=== PATIENT | female | born 1980 | race Caucasian/White ===

== ENCOUNTER → 2016-11-26 | Outpatient (CLI) | payer OTHER ==
[~2016-11-26] MED LIST: ALBUAER19 INH; ONDA4TAB10 SL; POTA20TA13 PO; PRENTAB26 PO; PRLSR20 PO; ZNTT/150 PO
== END | disposition home or self-care (01) ==
LOC: C.PATHSPEC 17:26
PROVIDERS: ATTEND Plastic Surgery
DX: L72.0 Epidermal cyst (principal)

== ENCOUNTER → 2016-12-20 | Outpatient (CLI) | payer OTHER | END | disposition home or self-care (01) | LOC: C.LABSPEC 16:07 | PROVIDERS: ATTEND Obstetrics & Gynecology | DX: O09.523 Supervision of elderly multigravida, third trimester (principal); Z3A.00 Weeks of gestation of pregnancy not specified ==

== ENCOUNTER 2017-01-08 01:31 | Outpatient (CLI) | payer OTHER ==
[~2017-01-08] VITALS: Ht 175.3 cm; Wt 100.0 kg
[~2017-01-08 01:31] MED LIST changes: -ONDA4TAB10 SL; -PRENTAB26 PO; -PRLSR20 PO
[2017-01-08 02:42] VITALS: Ht 175.3 cm; Wt 100.0 kg
== END 2017-01-08 02:37 | disposition home or self-care (01) ==
LOC: C.OPB 01:31 → C.LD 01:31 → C.OPB 02:37
PROVIDERS: ATTEND Obstetrics & Gynecology
DX: O36.8130 Decreased fetal movements, third trimester, not applicable or unspecified (principal); O62.9 Abnormality of forces of labor, unspecified; Z3A.39 39 weeks gestation of pregnancy

== ENCOUNTER 2017-01-14 01:07 | Inpatient (IN) | payer OTHER ==
[~2017-01-14] VITALS: Ht 175.3 cm; Wt 102.3 kg
[2017-01-14] MEDS ORDERED: PRLSR20 PO (01:54)
[2017-01-14 02:00] VITALS: Ht 175.3 cm; Wt 102.3 kg
[2017-01-14] MEDS ORDERED: LACTATED RINGER'S 1000ML 1,000 ML IV SCH ×2 (03:10→03:45)
[2017-01-14] MEDS ORDERED: LACTATED RINGER'S 1000ML 1,000 ML IV PRN (03:10)
[2017-01-14] MEDS ORDERED: LANOLIN OINT EXT PRN ×2 (03:45)
[2017-01-14] MEDS ORDERED: OXYTOCIN INJ 10 UNITS/ML VIAL IM ONE (03:45)
[2017-01-14] MEDS ORDERED: HYDROCORTISONE ACETATE 25 MG SUPP PR PRN (03:45)
[2017-01-14] MEDS ORDERED: BENZOCAINE 20% AER SPR 82.5 GM CAN EXT PRN (03:45)
[2017-01-14] MEDS ORDERED: DIPHTHERIA/TETANUS/PERTUSSIS 0.5 ML SYR/VIAL IM. ONE (03:45)
[2017-01-14] MEDS ORDERED: IBUPROFEN 600 MG TAB PO PRN (03:45)
[2017-01-14] MEDS ORDERED: ACETAMINOPHEN 325 MG TAB PO PRN (03:45)
[2017-01-14] MEDS ORDERED: SUPERCREAM 0.870 % 15GM JAR EXT PRN (03:45)
[2017-01-14] MEDS ORDERED: ACETAMINOPHEN/CODEINE 300/30MG TAB PO PRN ×2 (03:45)
--- NOTE | 2017-01-14 05:01 | DELIVERY SUMMARY ---
DATE OF OPERATION: 01/14/2017 CHIEF COMPLAINT ON ADMISSION: Contractions. HISTORY OF PRESENT ILLNESS: A 36-year-old G3, P1-0-1-1, who presented at 40-1/7 weeks gestational age, complaining of regular painful contractions. On arrival, the patient was checked by nursing and found to be category 1 heart sounds with an active TOCO and a cervix that was 4 cm. Patient's contractions palpated mild and the patient was offered to ambulate and be re-examined. On recheck, the patient was found to be 7 cm dilated. She had become significantly more uncomfortable and was requesting epidural. Before an epidural could be provided, the spontaneous rupture of membranes occurred and the patient rapidly brought the head down to the introitus with a strong urge to push. Of note, there was also a deceleration at this time, bringing the heart rate down into the 90s. At that point, I was called to the patient's bedside and in the time it took me to walk down the burk, patient had begun actively pushing and was . I quickly prepped for delivery. Over the next pushing effort, she brought the head of the to delivery in the PAMELA position and with the next push the entire remainder of the baby delivered rapidly. Of note, there was an occult cord prolapse with a loop of cord appearing above the 's right shoulder, which was the anterior shoulder, and delivering immediately after the head of the and before the shoulders did, which may explain the deceleration that occurred at the end stage of her labor. Once the infant delivered, it was placed on the maternal abdomen, the cord was doubly clamped and cut. The infant did make respiratory efforts and made movements with all four limbs immediately upon delivery. The placenta delivered spontaneously. On examination of the placenta, the cord appeared to have only 2 vessels. I asked the nurses attending to the baby in the warmer how many vessels they were seeing on the cord and they said they were seeing 2 vessels. I sectioned the cord to make a fresh cut to examine it closer to the placenta and once again, was only able to identify 2 vessels. We will send this placenta and cord for pathology examination. The cervix vagina and perineum were examined and found to be free of any defects requiring repair. Ten units of intramuscular Pitocin was given and the fundus was firm and well contracted and lochia was minimal immediately after delivery. Review of the patient's record reveals that this has been complicated by advanced maternal age and significant smoking at 3/4 of a pack per day. ALLERGIES: The patient has no known allergies. MEDICATIONS: Her medications include omeprazole, Ventolin and vitamins. OBSTETRIC HISTORY: Her obstetric history is notable for a miscarriage in 2014 and 1 spontaneous vaginal delivery in 2011 of a normal male. MEDICAL HISTORY: Her medical history is notable for migraines, small airway obstructive disease and history of abnormal Paps as well as varicella. SURGICAL HISTORY: Surgical history includes a D\T\E for the miscarriage, cholecystectomy and an umbilical herniorrhaphy. SOCIAL HISTORY: She is a single female, smoking 3/4 of a pack per day during , down from 1 pack per day pre . She denies use of alcohol or recreational drugs. LABS AND IMAGING: Her labs and imaging were reviewed. She is noted to be type O positive, rubella immune. She did pass her glucose screenings and of note, her anatomy scan does not appear to have identified the 2-vessel cord. She was group B strep negative. PLAN: At this time, the patient will be admitted for standard care. I attest to the content of the Intraoperative Record and any orders documented therein. Any exceptio ns are noted below.
[2017-01-14 05:58] VITALS: BP 120/63; PULSE 73; TEMP 36.6
[2017-01-14 07:15] VITALS: BP 115/72; PULSE 77; TEMP 36.8; O2SAT 98
[2017-01-14 07:36] LABS: HEMATOCRIT 37.1 % (37-47); MEAN CELL VOLUME 89.8 fL (80-100); MEAN CORPUSCULAR HGB CONC 35.6 g/dl (32-36); MEAN PLATELET VOLUME 10.3 fL (7.4-10.4); PLATELET COUNT 217 K/uL (130-400); RED BLOOD COUNT 4.13 M/uL (4.2-5.4); WHITE BLOOD COUNT 25.98 K/uL (4.8-10.8)
--- NOTE | 2017-01-14 07:56 | Progress Note ---
Subjective Jan 14, 2017. Subjective conversation w/ patient Ambulation: ambulating normally Voiding: no voiding problems Passing Gas: Yes Diet Tolerance: Regular Diet Lochia: Small Feeding Type: Bottle Feeding Comment: Sitting up in bed, looks well, claims to have no pain. At sandwich, voided, no gas/BM yet, lochia small per patient. Bottle feeding. Will want to leave hospital at 24hr after delivery. Review of Systems Constitutional: No fever Respiratory: No cough Cardiac: No chest pain Abdomen: No nausea, No vomiting Objective Vital Signs Date Time Temp Pulse Resp B/P Pulse Ox O2 Delivery O2 Flow Rate FiO2 01/14/17 05:58 36.6 73 20 120/63 Room Air 01/14/17 05:55 Room Air Physical Exam General Appearance: WELL-APPEARING, NO APPARENT DISTRESS Respiratory/Chest: no respiratory distress, no accessory muscle use Cardiovascular: no edema Abdomen: non tender, soft Fundus: Firm Extremities: no calf tenderness Laboratory Results Last 24 Hours Test 01/14/17 07:26 White Blood Count 25.98 K/uL Red Blood Count 4.13 M/uL Hemoglobin 13.2 g/dL Hematocrit 37.1 % Mean Corpuscular Volume 89.8 fL Mean Corpuscular Hemoglobin 32.0 pg Mean Corpuscular Hemoglobin Concent 35.6 g/dl RDW Standard Deviation 40.9 fL RDW Coefficient of Variation 12.5 % Platelet Count 217 K/uL Mean Platelet Volume 10.3 fL Assessment and Plan Problem List Medical Problems: (1) Leukocytosis Status: Acute (2) Vomiting Status: Acute Post- Day#: 0 Continue Routine Care: Delivered precipitously early this morning, no lacerations, doing very well already. Routine PP care.
[2017-01-14] MEDS: DOCUSATE SODIUM 100 MG CAP PO SCH ×2 (08:24→19:54)
[2017-01-14] MEDS: PRENATAL VITAMIN TAB PO SCH (08:24)
[2017-01-14 11:10] VITALS: BP 124/83; PULSE 85; TEMP 36.8; O2SAT 98
[2017-01-14 15:35] VITALS: BP 101/72; PULSE 64; TEMP 36.6
[2017-01-14 20:00] VITALS: BP 116/73; PULSE 75; TEMP 36.4
[2017-01-14 23:45] VITALS: BP 109/74; PULSE 66; TEMP 36.7
[2017-01-15] MEDS ORDERED: PRENTAB26 PO (06:53)
--- NOTE | 2017-01-15 06:55 | Discharge Instructions ---
Discharge Instructions Admission Reason for Admission: LABOR Discharge Discharge Diagnosis / Problem: Spontaneous Vaginal Delivery Discharge Goals Goal(s): Routine recovery after delivery Medications Continue Dispensed Medications: supercream, dermaplast, tucks, lansinoh Activity Recommendations Activity Limitations: per Instructions/Follow-up section . Instructions / Follow-Up Instructions / Follow-Up ACTIVITY RECOMMENDATIONS: * Gradual return to full activity over the next 2-3 weeks. * No lifting - nothing heavier than baby over the next 2-3 weeks. * Do not engage in vigorous exercise, sexual activity or sports until cleared by your physician. * Do not drive or operate any motorized equipment until cleared by your physician. * You may shower/bathe daily. MEDICATIONS: For discomfort or pain, you may use Acetaminophen (Tylenol), Ibuprofen (Advil), or Naproxen (Aleve) following the package directions. For constipation you may use Colace following the package directions. BREAST CARE: If you are not breast feeding: * Wear a supportive bra 24 hours a day for one to two weeks. * Avoid stimulating your breasts and nipples as much as possible during the first few weeks after delivery. * When taking a shower, have the warm water hit your back, not breasts. * When your breasts feel full, apply ice packs. Usually three to four times a day helps ease the discomfort. * Take a mild pain medication (Tylenol / Motrin) when you are uncomfortable. If breast feeding: * Use breast milk to lubricate nipples. Lansinoh cream may be used for sore nipples. You do not need to remove cream prior to breast feeding. If using a different brand of cream, check the label for directions regarding removal of cream prior to nursing. * Wear a supportive bra. * If having problems with breasts or breast feeding, call a managed security sales consultant or your health care provider. EPISIOTOMY CARE: After delivery, if you have an episiotomy (stitches), the following steps will ease discomfort and aid healing. * For the first 24 hours after delivery, place ice packs next to your episiotomy to help reduce swelling. * After the first 24 hour-period, sitz baths, either portable or in the tub, are suggested. A shower with a shower arm sprayed over the episiotomy may be comforting. * Sliva care should be done after each voiding and bowel movement. Squirt warm water from a plastic bottle over the perineum (region of the body between the anus and urinary opening) and pat dry. * Use Dermoplast to ease discomfort. Shake container. [place] directly over the episiotomy. Place a Tucks on a clean sanitary pad next to your episiotomy. SPECIAL CARE INSTRUCTIONS: When you are discharged from the hospital, it is important for you to follow the instructions listed below: * During the first week at home, you should be able to care for yourself and your baby. In addition, the usual light household activities are encouraged. * Limit your activities to the way you feel. Do not try to clean the house or move furniture. Be sensible. * If you actively engage in sports and have done so up until the time of your delivery, you may resume these activities as soon as you feel able. This may take up to one month or even longer. Use good judgment. * Continue to take your vitamins for at least six weeks after the of your baby. * Your diet need not be limited unless you were on a special diet before your delivery. Breast-feeding mothers need around 2500 calories per day and at least 64-80 ounces of fluid per day (8 to 10 glasses). * You should eat foods from the four major food groups. Crash diets or fad diets are to be avoided. Eating lean meats, fresh fruits and vegetables, low-fat dairy products, high fiber foods and a regular exercise program, will help you get back to your pre- weight without putting your health at risk. * Constipation is sometimes a problem after delivery. Take a mild laxative as needed. If breast feeding, Milk of Magnesia is acceptable to use. You may use a suppository or Fleets enema if no episiotomy. * A daily shower or tub bath is suggested. Be sure to thoroughly and gently dry the perineum. * A bloody vaginal discharge will usually continue until around four weeks post . A small amount of bleeding may continue for as long as six weeks. Vaginal discharge changes from the bright red bleeding after delivery to pink then brownish and finally yellowish-pink before becoming white and disappearing. * Bleeding may increase with activity. Your first period may come in 4-8 weeks. If you are breast feeding, your period may be delayed even longer. * [place] (sex) can begin whenever both you and your partner feel comfortable and do not have any form of genital infection. It is recommended that you wait at least six weeks for internal and external healing to occur. If you have questions, please talk to your health care practitioner. A condom should be used to prevent infection and . * Foreplay, gentle intercourse and lubrication is very important the first several times to prevent pain. A water-based lubricant such as K-Y jelly or Astroglide may be used. * If you have RH negative blood and your baby is RH positive, you will receive RHOGAM by injection prior to discharge. The nurse will give you a card to keep with you that has the date and place that you received RHOGAM after delivery. * During your care, you had a Rubella screen done to check for the presence of rubella antibodies in your blood. If your test was negative, you will receive a Rubella vaccine prior to discharge. This vaccine may cause a fever, soreness at the injection site and flu-like symptoms. If these symptoms persist, notify your health care practitioner. is not advised for one month after a Rubella vaccine. * Verbalizes understanding of car seat law as reviewed with patient nursing. * Car Seat hand-out given and reviewed with patient by nursing. * Shaken baby information reviewed with patient by nursing. Call you doctor if: * Heavy bleeding (saturating several pads an hour) or passing clots the size of your fist. * A fever >101 degrees F (38.3 degrees C) on two occasions four hours apart and /or chills. * Unusual pain in the pelvic or vaginal areas. * "Baby Blues" lasting longer than two weeks. If you have any questions or concerns, call your health care practitioner at . FOLLOW UP VISIT: * Please call the office at to schedule a 6 week examination. It is important you keep this appointment. It is important for you to make arrangements for either yearly or twice yearly check-ups thereafter. Current Hospital Diet Patient's current hospital diet: Regular OB Diet Discharge Diet Recommended Diet: Regular OB Diet Pending Studies Studies pending at discharge: no Medical Emergencies . Who to Call and When: Medical Emergencies: If at any time you feel your situation is an emergency, please call 911 immediately. . Non-Emergent Contact Non-Emergency issues call your: Primary Care Provider, Course Instructor . . "Provider Documentation" section prepared by Gregory Jeffries. VTE Core Measure Inpt VTE Proph given/why not?: Treatment not indicated
[2017-01-15 07:22] VITALS: BP 108/64; PULSE 68; TEMP 36.5; O2SAT 98
[2017-01-15 07:30] VITALS: O2SAT 98
[2017-01-15 07:40] LABS: HEMATOCRIT 35.6 % (37-47)
--- NOTE | 2017-01-15 07:43 | Progress Note ---
Subjective Jan 15, 2017. Subjective conversation w/ patient, physical exam Ambulation: ambulating normally Voiding: no voiding problems Passing Gas: Yes Diet Tolerance: Regular Diet Lochia: Small (still having some small clots) Feeding Type: Breast Feeding Review of Systems Constitutional: No chills, No fever Respiratory: No cough, No shortness of breath Cardiac: No chest pain, No palpitations Abdomen: No nausea, No pain, No vomiting Objective Vital Signs Date Time Temp Pulse Resp B/P Pulse Ox O2 Delivery O2 Flow Rate FiO2 01/14/17 23:45 36.7 66 18 109/74 Room Air 01/14/17 23:45 Room Air 01/14/17 20:00 36.4 75 16 116/73 Room Air 01/14/17 15:35 36.6 64 18 101/72 Room Air 01/14/17 15:35 Room Air 01/14/17 11:10 36.8 85 16 124/83 98 Room Air 01/14/17 07:15 Room Air 01/14/17 07:15 36.8 77 18 115/72 98 Room Air Physical Exam General Appearance: WELL-APPEARING, NO APPARENT DISTRESS Respiratory/Chest: lungs clear, normal breath sounds Cardiovascular: regular rate, rhythm, no murmur Abdomen: normal bowel sounds, non tender, soft Fundus: Firm, Non-Tender, Relation to Umbilicus (1 cm below umbilicus) Extremities: normal range of motion, non-tender, normal inspection Laboratory Results Last 24 Hours Test 01/14/17 07:26 01/15/17 04:44 White Blood Count 25.98 K/uL Red Blood Count 4.13 M/uL Hemoglobin 13.2 g/dL Hematocrit 37.1 % Mean Corpuscular Volume 89.8 fL Mean Corpuscular Hemoglobin 32.0 pg Mean Corpuscular Hemoglobin Concent 35.6 g/dl RDW Standard Deviation 40.9 fL RDW Coefficient of Variation 12.5 % Platelet Count 217 K/uL Mean Platelet Volume 10.3 fL Assessment and Plan Problem List Medical Problems: (1) Leukocytosis Status: Acute (2) Vomiting Status: Acute Post- Day#: 1 Continue Routine Care: s/p Day 1 - Hemoglobin 13.2 yesterday (today still pending) - Blood type O+, GBS negative, Rubella immune - Pt is doing well clinically - Encourage ambulation, monitor and control pain with motrin prn, resume regular diet, monitor lochia - Encourage breast feeding - Patient counselled on discharge instructions - PATIENT TO BE DISCHARGED TODAY Resident Physician Supervision Note: I interviewed and examined the patient. Discussed with Dr. Marks and agree with findings and plan as documented in the note. Any exceptions or clarifications are listed here: [None] Documented By: Caleb Perez
[2017-01-15] MEDS: DOCUSATE SODIUM 100 MG CAP PO SCH (08:17)
[2017-01-15] MEDS: PRENATAL VITAMIN TAB PO SCH (08:18)
== END 2017-01-15 11:40 | disposition home or self-care (01) | DRG 774 ==
LOC: C.LD 01:07 → C.OPB 01:07 → C.LD 03:12 → C.OPB 03:12 → C.OBG 05:54
PROVIDERS: ADMIT Obstetrics & Gynecology; ATTEND Obstetrics & Gynecology
PROC: 10E0XZZ Delivery of Products of Conception, External Approach (ICD-10-PCS; principal; 2017-01-15)
DX: O48.0 Post-term pregnancy (principal); O90.89 Other complications of the puerperium, not elsewhere classified; O69.0XX0 Labor and delivery complicated by prolapse of cord, not applicable or unspecified; O76 Abnormality in fetal heart rate and rhythm complicating labor and delivery; O69.89X0 Labor and delivery complicated by other cord complications, not applicable or unspecified; O99.334 Smoking (tobacco) complicating childbirth; F17.210 Nicotine dependence, cigarettes, uncomplicated; O62.3 Precipitate labor; D72.829 Elevated white blood cell count, unspecified; R11.0 Nausea; O99.52 Diseases of the respiratory system complicating childbirth; J98.8 Other specified respiratory disorders; Z37.0 Single live birth; Z3A.40 40 weeks gestation of pregnancy; Z87.42 Personal history of other diseases of the female genital tract; Z79.899 Other long term (current) drug therapy

== ENCOUNTER → 2017-08-15 | Outpatient (CLI) | payer OTHER ==
[~2017-08-15] MED LIST changes: -POTA20TA13 PO; +PRENTAB26 PO; +PRLSR20 PO; -ZNTT/150 PO
== END | disposition home or self-care (01) ==
LOC: C.PAPS 16:58
PROVIDERS: ATTEND Obstetrics & Gynecology
DX: Z34.90 Encounter for supervision of normal pregnancy, unspecified, unspecified trimester (principal); R87.612 Low grade squamous intraepithelial lesion on cytologic smear of cervix (LGSIL); Z3A.00 Weeks of gestation of pregnancy not specified

== ENCOUNTER → 2017-08-15 | Outpatient (CLI) | payer OTHER ==
[2017-08-15 15:48] LABS: BASO % 0.2 %; BASO ABS # 0.03 K/uL (0-0.2); COMPLETE YES; EOS % 1.1 %; HEMATOCRIT 42.1 % (37-47); IG% 0.4 %; LYMPH % 20.3 %; LYMPH ABS # 2.65 K/uL (1.2-3.4); MEAN CELL VOLUME 89.6 fL (80-100); MEAN CORPUSCULAR HEMOGLOBIN 30.4 pg (25-34); MEAN PLATELET VOLUME 10.3 fL (7.4-10.4); MONO % 6.7 %; NEUT % 71.3 %; PLATELET COUNT 262 K/uL (130-400); WHITE BLOOD COUNT 13.08 K/uL (4.8-10.8)
[2017-08-15 17:06] LABS: URINE APPEARANCE CLEAR (CLEAR); URINE BILIRUBIN NEG (NEG); URINE COLOR YELLOW; URINE NITRITE NEG (NEG); URINE SPECIFIC GRAVITY 1.028 (1.000-1.030); UROBILINOGEN NEG (NEG)
[2017-08-15 17:08] LABS: MANUAL MICROSCOPIC REQUIRED? NO; REVIEW REQ? NO
[2017-08-19 10:06] LABS: CHLAMYDIA TRACH RNA*** NOT DETECTED (NOT DETECTED); GC (NEIS GONORRHOEAE)RNA** NOT DETECTED (NOT DETECTED)
== END | disposition home or self-care (01) ==
LOC: C.LAB1850 14:36
PROVIDERS: ATTEND Obstetrics & Gynecology
DX: Z34.81 Encounter for supervision of other normal pregnancy, first trimester (principal); Z3A.00 Weeks of gestation of pregnancy not specified

== ENCOUNTER → 2018-01-23 | Outpatient (CLI) | payer OTHER ==
[2018-01-23 15:32] LABS: HEMATOCRIT 37.5 % (37-47); HEMOGLOBIN 13.1 g/dL (12.0-16.0)
== END | disposition home or self-care (01) ==
LOC: C.LAB1850 14:14
PROVIDERS: ATTEND Obstetrics & Gynecology
DX: O09.523 Supervision of elderly multigravida, third trimester (principal); Z3A.00 Weeks of gestation of pregnancy not specified

== ENCOUNTER → 2018-02-13 | Outpatient (CLI) | payer OTHER | END | disposition home or self-care (01) | LOC: C.LABSPEC 18:15 | PROVIDERS: ATTEND Obstetrics & Gynecology | DX: O09.523 Supervision of elderly multigravida, third trimester (principal) ==

== ENCOUNTER 2018-03-04 07:31 | Inpatient (IN) | payer OTHER ==
[~2018-03-04] VITALS: Ht 175.3 cm; Wt 100.5 kg
[2018-03-04] MEDS ORDERED: OXYTOCIN 30 UNITS/500ML NSS IV ONE (07:57)
[2018-03-04] MEDS ORDERED: OXYTOCIN INJ 10 UNITS/ML VIAL IM ONE (08:00)
[2018-03-04] MEDS ORDERED: IBUPROFEN 600 MG TAB PO PRN (08:00)
[2018-03-04] MEDS ORDERED: LANOLIN OINT EXT PRN (08:00)
[2018-03-04] MEDS ORDERED: ACETAMINOPHEN 325 MG TAB PO PRN (08:00)
[2018-03-04] MEDS ORDERED: ACETAMINOPHEN/CODEINE 300/30MG TAB PO PRN ×2 (08:00)
[2018-03-04] MEDS ORDERED: BENZOCAINE 20% AER SPR 82.5 GM CAN EXT PRN (08:00)
[2018-03-04] MEDS ORDERED: HYDROCORTISONE ACETATE 25 MG SUPP PR PRN (08:00)
[2018-03-04] MEDS ORDERED: SUPERCREAM 0.870 % 15GM JAR EXT PRN (08:00)
[2018-03-04] MEDS ORDERED: PRENATAL VITAMIN TAB PO SCH (08:00)
[2018-03-04] MEDS ORDERED: OXYTOCIN INJ 10 UNITS/ML VIAL ONE (08:04)
--- NOTE | 2018-03-04 08:23 | DELIVERY SUMMARY ---
DATE OF OPERATION: 03/04/2018 DELIVERY SUMMARY: This is a 37-year-old 4, para 2-0-1-2 at 39 plus weeks gestational age, who presented to labor and delivery in active labor. heart tones were 120 bpm.On her evaluation, she was anterior lip , completely effaced and +2 station. She began the second stage shortly thereafter once completely dilated. She pushed to deliver a viable male infant , Apgars of 8 and 10 via over a small vaginal laceration. Mouth and nose bulb suctioned at the perineum. Shoulders and body were delivered with ease. was vigorous and crying at . Cord was clamped at 30 seconds of life and to maternal abdomen, where the cord was then doubly clamped and cut. Placenta delivered spontaneously and intact, 3-vessel cord. Hemostasis achieved with IM Pitocin and uterine massage. Small laceration reapproximated with 2 [id number] sutures of 3-0 Vicryl after 1% local lidocaine anesthesia. EBL 300 mL. Mother and baby stable in recovery. IV site obtained to administer dilute pitocin. 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 2010 ASCUS Pap smear with no STDs noted. PAST MEDICAL AND SURGICAL HISTORY: Asthma, migraines, COPD, cholecystectomy, umbilical hernia repair, and D and E. ALLERGIES: None to medications. MEDICATIONS: Ventolin inhaler and Zantac. SOCIAL HISTORY: Smoker. No alcohol or street drug use. FAMILY HISTORY: Noncontributory. labs: rh pos, rubella immune, gbs negative. I attest to the content of the Intraoperative Record and any orders documented therein. Any exceptions are noted below. MTDD
[2018-03-04] MEDS ORDERED: OXYTOCIN 30 UNITS/500ML NSS IV PRN (08:30)
[2018-03-04] MEDS ORDERED: OXYTOCIN INJ 20 UNITS in LACTATED RINGER'S 1000ML 1,000 ML IV SCH (10:00)
[2018-03-04 10:55] VITALS: BP 114/66; PULSE 73; TEMP 36.6; O2SAT 97
[2018-03-04 11:17] VITALS: Ht 175.3 cm; Wt 100.5 kg
[2018-03-04 11:50] VITALS: BP 113/73; PULSE 67; TEMP 36.7; O2SAT 96
[2018-03-04 16:00] VITALS: BP 121/75; PULSE 75; TEMP 36.7
[2018-03-04 19:55] VITALS: BP 104/61; PULSE 73; TEMP 36.8
[2018-03-04] MEDS: DOCUSATE SODIUM 100 MG CAP PO SCH (20:07)
--- NOTE | 2018-03-04 23:26 | Discharge Instructions ---
Discharge Instructions Date of Service Mar 04, 2018. Admission Reason for Admission: LABOR Discharge Discharge Diagnosis / Problem: normal delivery Discharge Goals Goal(s): Routine recovery after delivery Medications Continue Dispensed Medications: supercream, dermaplast, tucks Activity Recommendations Activity Limitations: per Instructions/Follow-up section . Instructions / Follow-Up Instructions / Follow-Up ACTIVITY RECOMMENDATIONS: * Gradual return to full activity over the next 2-3 weeks. * No lifting - nothing heavier than baby over the next 2-3 weeks. * Do not engage in vigorous exercise, sexual activity or sports until cleared by your physician. * Do not drive or operate any motorized equipment until cleared by your physician. * You may shower/bathe daily. MEDICATIONS: For discomfort or pain, you may use Acetaminophen (Tylenol), Ibuprofen (Advil), or Naproxen (Aleve) following the package directions. For constipation you may use Colace following the package directions. BREAST CARE: If you are not breast feeding: * Wear a supportive bra 24 hours a day for one to two weeks. * Avoid stimulating your breasts and nipples as much as possible during the first few weeks after delivery. * When taking a shower, have the warm water hit your back, not breasts. * When your breasts feel full, apply ice packs. Usually three to four times a day helps ease the discomfort. * Take a mild pain medication (Tylenol / Motrin) when you are uncomfortable. If breast feeding: * Use breast milk to lubricate nipples. Lansinoh cream may be used for sore nipples. You do not need to remove cream prior to breast feeding. If using a different brand of cream, check the label for directions regarding removal of cream prior to nursing. * Wear a supportive bra. * If having problems with breasts or breast feeding, call a retail consultant or your health care provider. EPISIOTOMY CARE: After delivery, if you have an episiotomy (stitches), the following steps will ease discomfort and aid healing. * For the first 24 hours after delivery, place ice packs next to your episiotomy to help reduce swelling. * After the first 24 hour-period, sitz baths, either portable or in the tub, are suggested. A shower with a shower arm sprayed over the episiotomy may be comforting. * Silva care should be done after each voiding and bowel movement. Squirt warm water from a plastic bottle over the perineum (region of the body between the anus and urinary opening) and pat dry. * Use Dermoplast to ease discomfort. Shake container. [place] directly over the episiotomy. Place a Tucks on a clean sanitary pad next to your episiotomy. SPECIAL CARE INSTRUCTIONS: When you are discharged from the hospital, it is important for you to follow the instructions listed below: * During the first week at home, you should be able to care for yourself and your baby. In addition, the usual light household activities are encouraged. * Limit your activities to the way you feel. Do not try to clean the house or move furniture. Be sensible. * If you actively engage in sports and have done so up until the time of your delivery, you may resume these activities as soon as you feel able. This may take up to one month or even longer. Use good judgment. * Continue to take your vitamins for at least six weeks after the of your baby. * Your diet need not be limited unless you were on a special diet before your delivery. Breast-feeding mothers need around 2500 calories per day and at least 64-80 ounces of fluid per day (8 to 10 glasses). * You should eat foods from the four major food groups. Crash diets or fad diets are to be avoided. Eating lean meats, fresh fruits and vegetables, low-fat dairy products, high fiber foods and a regular exercise program, will help you get back to your pre- weight without putting your health at risk. * Constipation is sometimes a problem after delivery. Take a mild laxative as needed. If breast feeding, Milk of Magnesia is acceptable to use. You may use a suppository or Fleets enema if no episiotomy. * A daily shower or tub bath is suggested. Be sure to thoroughly and gently dry the perineum. * A bloody vaginal discharge will usually continue until around four weeks post . A small amount of bleeding may continue for as long as six weeks. Vaginal discharge changes from the bright red bleeding after delivery to pink then brownish and finally yellowish-pink before becoming white and disappearing. * Bleeding may increase with activity. Your first period may come in 4-8 weeks. If you are breast feeding, your period may be delayed even longer. * [place] (sex) can begin whenever both you and your partner feel comfortable and do not have any form of genital infection. It is recommended that you wait at least six weeks for internal and external healing to occur. If you have questions, please talk to your health care practitioner. A condom should be used to prevent infection and . * Foreplay, gentle intercourse and lubrication is very important the first several times to prevent pain. A water-based lubricant such as K-Y jelly or Astroglide may be used. * If you have RH negative blood and your baby is RH positive, you will receive RHOGAM by injection prior to discharge. The nurse will give you a card to keep with you that has the date and place that you received RHOGAM after delivery. * During your care, you had a Rubella screen done to check for the presence of rubella antibodies in your blood. If your test was negative, you will receive a Rubella vaccine prior to discharge. This vaccine may cause a fever, soreness at the injection site and flu-like symptoms. If these symptoms persist, notify your health care practitioner. is not advised for one month after a Rubella vaccine. * Verbalizes understanding of car seat law as reviewed with patient nursing. * Car Seat hand-out given and reviewed with patient by nursing. * Shaken baby information reviewed with patient by nursing. Call you doctor if: * Heavy bleeding (saturating several pads an hour) or passing clots the size of your fist. * A fever >101 degrees F (38.3 degrees C) on two occasions four hours apart and /or chills. * Unusual pain in the pelvic or vaginal areas. * "Baby Blues" lasting longer than two weeks. If you have any questions or concerns, call your health care practitioner at . FOLLOW UP VISIT: * Please call the office at to schedule a 6 week examination. It is important you keep this appointment. It is important for you to make arrangements for either yearly or twice yearly check-ups thereafter. Current Hospital Diet Patient's current hospital diet: Regular Diet Discharge Diet Recommended Diet: Regular OB Diet Pending Studies Studies pending at discharge: no Medical Emergencies . Who to Call and When: Medical Emergencies: If at any time you feel your situation is an emergency, please call 911 immediately. . Non-Emergent Contact Non-Emergency issues call your: Health Promotion Coordinator . . "Provider Documentation" section prepared by Ashleigh ALEXANDER Drug Monitoring Program Search Results: no issues identified
[2018-03-04 23:30] VITALS: BP 115/72; PULSE 71; TEMP 36.5
[2018-03-05 03:20] VITALS: BP 102/63; PULSE 62; TEMP 36.5
--- NOTE | 2018-03-05 06:37 | Progress Note ---
Subjective Mar 05, 2018. Subjective conversation w/ patient, physical exam, chart review, lab review Ambulation: ambulating normally Voiding: no voiding problems Passing Gas: Yes Diet Tolerance: Regular Diet Lochia: Small Feeding Type: Bottle Feeding Review of Systems Constitutional: No fever, No chills, No sweats Respiratory: No cough, No shortness of breath Cardiac: No chest pain Abdomen: No pain, No nausea, No vomiting Female : No dysuria Objective Vital Signs Date Time Temp Pulse Resp B/P (MAP) Pulse Ox O2 Delivery O2 Flow Rate FiO2 03/05/18 03:20 36.5 62 16 102/63 (76) Room Air 03/04/18 23:30 Room Air 03/04/18 23:30 36.5 71 16 115/72 (86) Room Air 03/04/18 19:55 36.8 73 20 104/61 (75) Room Air 03/04/18 16:00 36.7 75 20 121/75 (90) Room Air 03/04/18 16:00 Room Air 03/04/18 11:50 36.7 67 20 113/73 (86) 96 Room Air 03/04/18 10:55 97 Room Air 03/04/18 10:55 36.6 73 20 114/66 (82) 97 Room Air Physical Exam General Appearance: WELL-APPEARING, WD/WN, NO APPARENT DISTRESS Respiratory/Chest: lungs clear, no accessory muscle use Cardiovascular: regular rate, rhythm Abdomen: normal bowel sounds, non tender Fundus: Firm, Relation to Umbilicus (1cm below u) Extremities: non-tender, normal inspection Laboratory Results Last 24 Hours Test 03/05/18 04:44 Medications Current Inpatient Medications Medications (Trade) Dose Ordered Sig/Rebekah Route Start Time Stop Time Status Last Admin Dose Admin Benzocaine (Dermoplast Aero Spr) 1 appln PRN PRN EXT 03/04/18 08:00 04/03/18 07:59 03/04/18 20:07 1 APPLN Cocaine HCl (Supercream 0.870% Cr) BID PRN EXT 03/04/18 08:00 03/18/18 07:59 Hydrocortisone Acetate (Anusol Hc Supp) 25 mg BID PRN WI 03/04/18 08:00 04/03/18 07:59 Lanolin (Lanolin Oint) PRN PRN EXT 03/04/18 08:00 04/03/18 07:59 Prenat Multivit/ [place]/Iron/Folic Ac ( Vitamin Tab) 1 tab DAILY PO 03/04/18 08:00 04/03/18 07:59 Ibuprofen (Motrin Tab) 600 mg Q4H PRN PO 03/04/18 08:00 04/03/18 07:59 Acetaminophen (Tylenol Tab) 650 mg Q6H PRN PO 03/04/18 08:00 04/03/18 07:59 Acetaminophen/ Codeine Phosphate (Tylenol w/ Codeine #3 Tab) 1 tab Q4H PRN PO 03/04/18 08:00 04/03/18 07:59 Acetaminophen/ Codeine Phosphate (Tylenol w/ Codeine #3 Tab) 2 tab Q4H PRN PO 03/04/18 08:00 04/03/18 07:59 Docusate Sodium (coLACE CAP) 100 mg BID PO 03/04/18 08:00 04/03/18 07:59 03/04/18 20:07 100 MG Oxytocin (Pitocin IV) 30 units UD PRN IV 03/04/18 08:30 04/03/18 08:29 Assessment and Plan Problem List Medical Problems: (1) Leukocytosis Status: Acute (2) Vomiting Status: Acute Post- Day#: 1 Continue Routine Care: Resident Physician Supervision Note: I interviewed and examined the patient. Discussed with Dr. Veloz and agree with findings and plan as documented in the note. Any exceptions or clarifications are listed here: [None] Documented By: Ashleigh Hall 37 f post day 1, O+/GBS-/RI. Reviewed vital, WNL. No signs or sx of anemia--am Hgb is pending. Patient is doing clinically well. Plan 1. Continue pp care; ambulate, control pain, monitor lochia 2. Discussed dc planning
[2018-03-05 07:10] VITALS: BP 116/70; PULSE 65; TEMP 36.5; O2SAT 98
[2018-03-05 07:43] LABS: HEMATOCRIT 33.4 % (37-47); HEMOGLOBIN 11.6 g/dL (12.0-16.0); MEAN CELL VOLUME 91.5 fL (80-100); MEAN CORPUSCULAR HEMOGLOBIN 31.8 pg (25-34); MEAN CORPUSCULAR HGB CONC 34.7 g/dl (32-36); MEAN PLATELET VOLUME 9.8 fL (7.4-10.4); PLATELET COUNT 254 K/uL (130-400); RED CELL DISTRIBUTION WIDTH CV 13.1 % (11.5-14.5); RED CELL DISTRIBUTION WIDTH SD 43.7 fL (36.4-46.3); WHITE BLOOD COUNT 17.75 K/uL (4.8-10.8)
[2018-03-05] MEDS: DOCUSATE SODIUM 100 MG CAP PO SCH (08:10)
[2018-03-05 12:15] VITALS: BP_DIAS 70; PULSE 65; TEMP 36.5
== END 2018-03-05 13:20 | disposition home or self-care (01) | DRG 775 ==
LOC: C.OPB 07:31 → C.LD 07:31 → C.OPB 07:35 → C.LD 07:35 → C.OBG 10:50
PROVIDERS: ADMIT Obstetrics & Gynecology; ATTEND Obstetrics & Gynecology
PROC: 10E0XZZ Delivery of Products of Conception, External Approach (ICD-10-PCS; principal; 2018-03-04)
PROC: 0UQGXZZ Repair Vagina, External Approach (ICD-10-PCS; principal; 2018-03-04)
DX: O99.52 Diseases of the respiratory system complicating childbirth (principal); O71.4 Obstetric high vaginal laceration alone; J45.909 Unspecified asthma, uncomplicated; J44.9 Chronic obstructive pulmonary disease, unspecified; O99.334 Smoking (tobacco) complicating childbirth; F17.200 Nicotine dependence, unspecified, uncomplicated; Z79.899 Other long term (current) drug therapy; Z87.59 Personal history of other complications of pregnancy, childbirth and the puerperium; Z3A.39 39 weeks gestation of pregnancy; Z37.0 Single live birth